=== PATIENT | female | born 1980 | race Caucasian/White ===

== ENCOUNTER 2017-06-02 13:27 | Emergency (ER) | payer BC ==
[~2017-06-02] VITALS: Ht 160 cm; Wt 86.2 kg
--- NOTE | 2017-06-02 13:35 | NUR ---
C/O N/V AND DIARRHEA X7 SINCE 345 AM TODAY. DIFFUSE ABD PAIN. POSSIBLE FOOD POISONING. A/OX 4. BREATHING EVEN AND UNLABORED. NO SOB. VITALS STABLE. SAFETY AND COMFORT MEAURES IN PLACE. AWAITING MD ORDERS.
--- NOTE | 2017-06-02 14:10 | NUR ---
NEW IV STARTED ON RAC, 20 G.
[2017-06-02] MEDS ORDERED: ONDANSETRON HCL/PF 4 MG/2 ML VIAL ONE (14:17)
[2017-06-02] MEDS ORDERED: KETOROLAC TROMETHAMINE 15 MG/ML VIAL ONE (14:17)
--- NOTE | 2017-06-02 14:21 | NUR ---
PATIENT MEDICATED PER MD ORDERS.
[2017-06-02] MEDS ORDERED: KETOROLAC TROMETHAMINE INJ 30 MG/ML VIAL IV ONE (14:30)
[2017-06-02] MEDS ORDERED: ONDANSETRON HCL/PF 4 MG/2 ML VIAL IVP ONE (14:30)
[2017-06-02] MEDS ORDERED: IV NS 0.9% 1,000 ML BAG IV ONE (14:30)
[2017-06-02 15:23] VITALS: BP 124/76
--- NOTE | 2017-06-02 15:24 | NUR ---
IV removed. Catheter intact and site benign. Pressure and 4x4 applied to site. No bleeding noted. Patient discharged to home in stable condition. Written and verbal after care instructions given. Patient verbalizes understanding of instruction.
== END 2017-06-02 15:24 | disposition home or self-care (01) ==
LOC: ER 13:30
DX: R11.2 Nausea with vomiting, unspecified (principal); R19.7 Diarrhea, unspecified; F10.10 Alcohol abuse, uncomplicated; Z90.49 Acquired absence of other specified parts of digestive tract
CPT/HCPCS: 84703-TC; A4606; J1885; J2405; J7030; Z7610